=== PATIENT | female | born 1990 | race Caucasian/White ===

== ENCOUNTER 2016-08-11 19:19 | Observation (INO) ==
[2016-08-11 20:48] LABS: Bilirubin,Urine Negative (Negative); Blood,Urine Negative (Negative); Clarity,Urine Clear (Clear); Color,Urine Yellow (Yellow); Glucose,Urine (UA) 500 mg/dL (Normal); Ketones,Urine >=160 mg/dL (Negative); Leukocyte Esterase,Urine Trace (Negative); Nitrite,Urine Negative (Negative); Protein,Urine 30 mg/dL (Neg-Trace); Specific Gravity,Urine 1.029 (1.010-1.025); Urobilinogen,Urine Normal (Normal)
[2016-08-11 20:56] LABS: Squamous Epithelial Cell,Urine Few per lpf (None-Few)
[2016-08-11 20:57] LABS: Bacteria,Urine Few per hpf (None-Few); Mucus,Urine Few (Few)
[2016-08-11 21:40] LABS: Basophils % 0.2 %; Eosinophils % 0.1 %; Immature Granulocytes % 0.5 % (0-4); Lymphocytes # 0.7 K/mcL (0.6-4.6); Mean Corpuscular HGB Conc 34.9 g/dL (31.6-35.5); Mean Corpuscular Hemoglobin 31.1 pg (28.0-33.3); Mean Corpuscular Volume 89.2 fL (83.0-100.0); Mean Platelet Volume 9.4 fL (9.4-12.4); Monocytes # 0.4 K/mcL (0.0-1.3); Monocytes % 3.4 %; Neutrophils # 10.9 K/mcL (1.6-8.9); Platelet Count 345 K/mcL (140-400); Red Blood Count 4.82 M/mcL (3.82-4.97); Red Cell Distribution Width 11.2 % (11.5-14.5); Segmented Neutrophils % 89.8 %
[2016-08-11] MEDS ORDERED: Ondansetron ODT 4 MG TAB.RAPDIS SL ONE (21:43)
--- NOTE | 2016-08-11 21:47 | Emergency Department Note ---
Disposition Clinical Impression: DKA (diabetic ketoacidoses) Disposition: Admitted As Inpatient Condition: Good Referrals: Albertina Parker CHARTER COACH DRIVER [Primary Care Provider] - Forms: Work/School Release, ED Satisfaction Letter Time of Disposition: 22:27 Nausea/Vomiting/Diarrhea HPI - General Chief complaint: ED Abdominal Pain Stated complaint: abd pain Time Seen by Provider: 08/11/16 21:37 Source: patient Mode of arrival: ambulatory Limitations: no limitations Nursing Notes Reviewed: Yes Vital Signs Reviewed: Yes - History of Present Illness HPI Narrative: This is a 25 yo F who presents with n/v/d starting at 6 am today. Pt states sharp intermittent generalized abdominal pains associated. Pt denies any chest pain. Pt states they told her she was running a fever here but she had not had one that she was aware of early today. Pt states the pain that she gets takes her breath away. Pt denies any urinary symptoms. Pt denies chance of . Pt Subjective Complaint: nausea, vomiting, diarrhea Onset (ago): hour(s) - Related Data Allergies Allergy/AdvReac Type Severity Reaction Status Date / Time No Known Allergies Allergy Verified 08/11/16 20:28 All systems ED: reviewed and negative except as stated. Constitutional: Denies: fever, chills, weakness, weight change Eyes: Denies: eye pain, eye discharge, vision change ENT ED: Denies: ear pain, throat pain, dental pain, hearing loss, epistaxis, congestion, dysphagia Cardiovascular: Denies: chest pain, palpitations, dyspnea on exertion, edema, syncope Respiratory: Denies: cough, dyspnea, wheezes, hemoptysis, stridor Gastrointestinal: Reports: abdominal pain, nausea, vomiting, diarrhea. Denies: constipation, hematemesis, melena, hematochezia Genitourinary: Denies: dysuria, frequency, hematuria, discharge Musculoskeletal: Denies: back pain, neck pain, arthralgia, myalgia Integumentary: Denies: rash, abrasion, lesions Neurological: Denies: headache, weakness, numbness, paresthesias, confusion, abnormal gait, vertigo Psychiatric: Denies: anxiety, depression, suicidal thoughts, homicidal thoughts , auditory hallucinations, visual hallucinations Endocrine: Denies: fatigue Hematological/Lymphatic: Denies: easy bleeding, easy bruising Allergic/Immunologic: Denies: facial swelling, urticaria Past Medical History - Past Medical History Attestation: Yes The following information was validated with the patient. Source: patient Medical history: Reports: diabetes Psychiatric history: Reports: no psych history - Social History Smoking Status: Never smoker Alcohol use: Reports: none Drug use: Reports: none Physical Exam - General Limitations: no limitations General appearance: alert, in no apparent distress - Head Head exam: atraumatic, normocephalic, normal inspection - Eye Eye exam: Present: normal appearance, PERRL, EOMI - ENT ENT exam: normal exam, normal oropharynx, mucous membranes moist - Expanded ENT Exam External ear exam: Present: normal external inspection Mouth exam: Present: normal external inspection Teeth exam: Present: normal inspection Throat exam: Present: normal inspection - Neck Neck exam: Present: normal inspection, full ROM, trachea midline - Chest Chest inspection: Present: normal inspection, symmetric chest wall rise - Respiratory Respiratory exam: Present: normal lung sounds bilaterally - Cardiovascular Cardiovascular exam: Present: normal rhythm, tachycardia ( ), normal heart sounds - Abdominal Exam Abdominal exam: Present: soft, Non-Tender. Absent: tenderness, distention, guarding, rebound, rigidity - Extremities Exam Extremities exam: Present: normal inspection, full ROM. Absent: tenderness, pedal edema - Expanded Upper Extremity Exam Shoulder exam: Present: normal inspection, full ROM Arm exam: Present: normal inspection, full ROM Elbow exam: Present: normal inspection, full ROM Forearm/Wrist exam: Present: normal inspection, full ROM Hand exam: Present: normal inspection, full ROM Vascular exam: Normal: capillary refill, radial pulse - Expanded Lower Extremity Exam Hip/Pelvis exam: Present: normal inspection, full ROM Upper leg exam: Present: normal inspection, full ROM Knee exam: Present: normal inspection, full ROM Lower leg exam: Present: normal inspection, full ROM Ankle exam: Present: normal inspection, full ROM Foot/toe exam: Present: normal inspection, full ROM Neurovascular/Tendon exam: Absent: motor deficit, sensory deficit, tendon deficit - Back Exam Back exam: Present: normal inspection, full ROM. Absent: tenderness - Neurological Exam Neurological exam: Present: alert, oriented X3 - Expanded Neurological Exam Patient oriented to: Present: person, place, time Coma Scale Eye Opening: Spontaneous Coma Scale Motor Response: Obeys Commands Coma Scale Verbal Response: Oriented Coma Scale Total: 15 - Psychiatric Psychiatric exam: Present: normal affect, normal mood - Skin Skin exam: Present: warm, dry, intact, normal color Course - Consultations Consultation #1: I spoke with Dr. Borden he wants a CT Abd/Pelvis with IV contrast and then a call back. Time: 22:51 Vital Signs Temperature 99.2 F 08/11/16 20:23 Pulse Rate 140 08/11/16 20:23 Respiratory Rate 20 08/11/16 20:23 Blood Pressure 127/84 08/11/16 20:23 O2 Sat by Pulse Oximetry 97 08/11/16 20:23 Temperature 99.2 F 08/11/16 20:23 Pulse Rate 140 08/11/16 20:23 Respiratory Rate 20 08/11/16 20:23 Blood Pressure 127/84 08/11/16 20:23 O2 Sat by Pulse Oximetry 97 08/11/16 20:23 Oxygen Delivery Oxygen Delivery Room Air Nausea/Vomiting/Diarrhea - Medical Records Medical records reviewed: Yes I reviewed the patient's medical records. - Lab Data Lab results reviewed: Yes I reviewed the patient's lab results. Result diagrams: 08/11/16 21:32 08/11/16 21:32 Lab Results 08/11/16 08/11/16 08/11/16 Range/Units 20:30 20:39 21:32 WBC 12.1 H (4.3-11.1) K/mcL RBC 4.82 (3.82-4.97) M/mcL Hgb 15.0 (11.5-15.4) g/dL Hct 43.0 (35.3-44.9) % MCV 89.2 (83.0-100.0) fL MCH 31.1 (28.0-33.3) pg MCHC 34.9 (31.6-35.5) g/dL RDW 11.2 L (11.5-14.5) % Plt Count 345 (140-400) K/mcL MPV 9.4 (9.4-12.4) fL Immature Gran % 0.5 (0-4) % Seg Neutrophils % 89.8 % Lymphocytes % 6.0 % Monocytes % 3.4 % Eosinophils % 0.1 % Basophils % 0.2 % Neutrophils # 10.9 H (1.6-8.9) K/mcL Lymphocytes # 0.7 (0.6-4.6) K/mcL Monocytes # 0.4 (0.0-1.3) K/mcL Eosinophils # 0.0 (0.0-0.6) K/mcL Basophils # 0.0 (0.0-0.2) K/mcL Sodium (136-145) mEq/L Potassium (3.5-4.5) mEq/L Chloride (98-109) mEq/L Carbon Dioxide (19-29) mEq/L BUN (7-20) mg/dL Creatinine (0.57-1.11) mg/dL Est GFR ( Amer) (> 60) Est GFR (Non-Af Amer) (> 60) BUN/Creatinine Ratio (6-26) Glucose (70-99) mg/dL POC Glucose 249 H (58-89) Calculated Osmolality (280-300) Calcium (8.6-10.8) mg/dL Total Bilirubin (0.2-1.2) mg/dL Direct Bilirubin (0.0-0.5) mg/dL Indirect Bilirubin (0.0-1.2) mg/dL AST (5-34) Units/L ALT (0-55) Units/L Alkaline Phosphatase (38-126) Units/L Serum Total Protein (6.0-8.3) g/dL Albumin (3.5-5.0) g/dL Globulin (2.4-3.5) g/dL Albumin/Globulin Ratio (1.1-2.2) Lipase (8-78) Units/L Urine Color Yellow (Yellow) Urine Clarity Clear (Clear) Urine pH 6.0 (5.0-8.0) pH Units Ur Specific Rampart 1.029 H (1.010-1.025) Urine Protein 30 H (Neg-Trace) mg/dL Urine Glucose (UA) 500 H (Normal) mg/dL Urine Ketones >=160 H (Negative) mg/dL Urine Blood Negative (Negative) Urine Nitrite Negative (Negative) Urine Bilirubin Negative (Negative) Urine Urobilinogen Normal (Normal) mg/dL Ur Leukocyte Esterase Trace H (Negative) Urine Microscopic WBC 3-5 H (0-3) per hpf Ur Squamous Epith Cells Few (None-Few) per lpf Urine Bacteria Few (None-Few) per hpf Urine Mucus Few (Few) Ur Culture Indicated? YES A (NO) 08/11/16 Range/Units 21:32 WBC (4.3-11.1) K/mcL RBC (3.82-4.97) M/mcL Hgb (11.5-15.4) g/dL Hct (35.3-44.9) % MCV (83.0-100.0) fL MCH (28.0-33.3) pg MCHC (31.6-35.5) g/dL RDW (11.5-14.5) % Plt Count (140-400) K/mcL MPV (9.4-12.4) fL Immature Gran % (0-4) % Seg Neutrophils % % Lymphocytes % % Monocytes % % Eosinophils % % Basophils % % Neutrophils # (1.6-8.9) K/mcL Lymphocytes # (0.6-4.6) K/mcL Monocytes # (0.0-1.3) K/mcL Eosinophils # (0.0-0.6) K/mcL Basophils # (0.0-0.2) K/mcL Sodium 134 L (136-145) mEq/L Potassium 3.3 L (3.5-4.5) mEq/L Chloride 103 (98-109) mEq/L Carbon Dioxide 17 L (19-29) mEq/L BUN 10 (7-20) mg/dL Creatinine 0.72 (0.57-1.11) mg/dL Est GFR ( Amer) > 60 (> 60) Est GFR (Non-Af Amer) > 60 (> 60) BUN/Creatinine Ratio 14 (6-26) Glucose 287 H (70-99) mg/dL POC Glucose (58-89) Calculated Osmolality 288 (280-300) Calcium 8.7 (8.6-10.8) mg/dL Total Bilirubin 0.6 (0.2-1.2) mg/dL Direct Bilirubin 0.3 (0.0-0.5) mg/dL Indirect Bilirubin 0.3 (0.0-1.2) mg/dL AST 22 (5-34) Units/L ALT 20 (0-55) Units/L Alkaline Phosphatase 60 (38-126) Units/L Serum Total Protein 7.3 (6.0-8.3) g/dL Albumin 3.3 L (3.5-5.0) g/dL Globulin 4.0 H (2.4-3.5) g/dL Albumin/Globulin Ratio 0.8 L (1.1-2.2) Lipase 11 (8-78) Units/L Urine Color (Yellow) Urine Clarity (Clear) Urine pH (5.0-8.0) pH Units Ur Specific Rampart (1.010-1.025) Urine Protein (Neg-Trace) mg/dL Urine Glucose (UA) (Normal) mg/dL Urine Ketones (Negative) mg/dL Urine Blood (Negative) Urine Nitrite (Negative) Urine Bilirubin (Negative) Urine Urobilinogen (Normal) mg/dL Ur Leukocyte Esterase (Negative) Urine Microscopic WBC (0-3) per hpf Ur Squamous Epith Cells (None-Few) per lpf Urine Bacteria (None-Few) per hpf Urine Mucus (Few) Ur Culture Indicated? (NO)
[2016-08-11 21:54] LABS: BUN/Creatinine Ratio 14 (6-26); Blood Urea Nitrogen 10 mg/dL (7-20); Calcium 8.7 mg/dL (8.6-10.8); Carbon Dioxide 17 mEq/L (19-29); Chloride 103 mEq/L (98-109); Glucose 287 mg/dL (70-99); Osmolality,Calculated 288 (280-300); Potassium 3.3 mEq/L (3.5-4.5); Sodium 134 mEq/L (136-145); eGFR For African Americans > 60 (> 60); eGFR For Non-African Americans > 60 (> 60)
[2016-08-11] MEDS ORDERED: 0.9 % Sodium Chloride 1,000 ML IV SCH ×2 (22:00→22:30)
[2016-08-11 22:08] LABS: Alanine Aminotransferase 20 Units/L (0-55); Albumin 3.3 g/dL (3.5-5.0); Albumin/Globulin Ratio 0.8 (1.1-2.2); Alkaline Phosphatase 60 Units/L (38-126); Aspartate Amino Transferase 22 Units/L (5-34); Bilirubin,Direct 0.3 mg/dL (0.0-0.5); Bilirubin,Indirect 0.3 mg/dL (0.0-1.2); Bilirubin,Total 0.6 mg/dL (0.2-1.2); Lipase 11 Units/L (8-78); Total Protein 7.3 g/dL (6.0-8.3)
[2016-08-11 22:58] LABS: VBG HCO3 21.8 mEq/L (21-27); VBG PH 7.39 pH Units (7.32-7.42)
[2016-08-12] MEDS ORDERED: *HR* Dextrose 50 % in Water (Syg) 50 ML SYRINGE IVP PRN ×2 (00:07→00:46)
[2016-08-12] MEDS ORDERED: SODIUM CHLORIDE 0.9% IVC SCH (00:15)
[2016-08-12] MEDS ORDERED: INSULIN HUMAN REGULAR IVC SCH (00:15)
[2016-08-12] MEDS ORDERED: Ondansetron 4 MG/2 ML VIAL IVP PRN (00:44)
[2016-08-12] MEDS ORDERED: Naloxone 0.4 MG/ML INJ IVP PRN (00:44)
[2016-08-12] MEDS ORDERED: Acetaminophen 325 MG TABLET PO PRN (00:44)
[2016-08-12] MEDS ORDERED: 0.9 % Sodium Chloride 1,000 ML IVC SCH (00:45)
[2016-08-12] MEDS ORDERED: Dextrose Gel 15 GM PO PRN ×2 (00:46)
[2016-08-12] MEDS ORDERED: D5% in Water 1,000 ML IV PRN (00:46)
--- NOTE | 2016-08-12 02:26 | Internal Med History&Physical ---
Date of Encounter: 08/12/16 Time of Encounter: 02:24 Assessment and Plan (1) Viral gastroenteritis Current visit: Yes Status: Acute Patient is a history of sick contact 2-year-old son who is suffering from the same diarrheal episode. Patient appears dry on physical exam. Placed under observation. Full liquid diet and advance as tolerated. Intravenous fluids. Supportive care. No indication for antibiotics. Likely discharge later today depending on her clinical progress. (2) Diabetes mellitus Current visit: Yes Status: Chronic Patient is his metformin and glyburide at home. Hold by mouth medications. Sliding scale insulin. Patient has been instructed to hold metformin until diarrheal illness resolves. Qualifiers: Diabetes mellitus type: type 2 Diabetes mellitus complication status: without complication Diabetes mellitus fdc insulin use: without vermin exterminator use Qualified Code(s): E11.9 - Type 2 diabetes mellitus without complications (3) Obesity Current visit: No Status: Chronic Qualifiers: Obesity type: due to excess calories Obesity severity: non-morbid Qualified Code(s): E66.09 - Other obesity due to excess calories Internal Medicine - H&P: HPI Chief complaint: Abdominal pain Admitted From: Emergency Dept Plans for Post Hospital Care: Home History of present illness: Ms. Fuentes is a 25 year old female who presented to the emergency room due to abdominal pain. The patient states that the pain started yesterday morning at 6 AM. The pain gradually got worse throughout the day. It was a diffuse abdominal pain without any radiation. No aggravating or relieving factors. The pain was associated with diarrhea. She states that it is loose bowel movements and she had 6 episodes yesterday. The patient has been on metformin for over a year. She was initially on 500 mg by mouth twice a day. However, over the past 2 months her dose was increased to 1000 mg twice a day and she has been having bowel movements 4 times a day. This diarrheal episode is more than her usual bowel movements. She reports nausea and having had an episode of emesis. Denies any blood or pus in the stool. Denies any shortness of breath, chest pain, palpitations or feeling lightheaded. Denies any fever or chills. She does report sick [id number]-year-old son is sick with diarrhea and viral gastroenteritis. She denies eating outside. Past Med Surg Social Fam HX - Past Medical History Attestation: Yes The following information was validated with the patient. Source: patient Medical history: diabetes (Type 2) Psychiatric history: no psych history - Past Surgical History Surgical History: - Social History Smoking Status: Never smoker Alcohol use: none Drug use: none Current living situation: Home, With Family Activity Level: Independent ambulation - Family History Mother Hx Family Endocrine Disorder: Yes (DM) Father Hx Family Endocrine Disorder: Yes (DM) Internal Medicine - H&P: Meds Allergies No Known Allergies Allergy (Verified 08/11/16 20:28) All Systems PM: A 10-system review of systems was performed and is negative for pertinent findings except as documented above in the HPI. Review of systems: 10 systems have been reviewed and are negative except as mentioned in the history of present illness - Constitutional Vitals: Temp Pulse Resp BP Pulse Ox 99.2 F 108 16 130/78 98 08/11/16 20:23 08/12/16 00:47 08/12/16 00:47 08/12/16 00:47 08/12/16 00:47 Exam: Gen.: Lying in bed. No acute distress. Eyes: Pupils equal, round and reactive to light. Extraocular muscles intact. ENT: Dry mucous membranes. No oropharyngeal erythema or discharge. Chest: Clear to auscultation bilaterally. No adventitious sounds present. CVS: First and second heart sounds present. No murmurs, rubs or gallops. Tachycardia present Abdomen: Soft, nontender, obese. Bowel sounds present. No hepatosplenomegaly. Skin: No decubitus ulcers appreciated. DOMESTIC TECHNICIAN: No focal neuro deficits present. Psychiatric: Alert, awake and oriented to time, place and person. Lymphatic system: No lymphadenopathy appreciated Internal Med - H&P Results - Labs CBC & Chem 7: 08/11/16 21:32 08/11/16 21:32
[2016-08-12] MEDS: 0.9 % Sodium Chloride 1,000 ML IVC SCH ×2 (03:15→04:20)
[2016-08-12] MEDS: Bismuth Subsalicylate 120 ML ORAL SUSPENSION PO PRN ×2 (03:21→10:03)
[2016-08-12 06:50] LABS: BUN/Creatinine Ratio 13 (6-26); Blood Urea Nitrogen 7 mg/dL (7-20); Carbon Dioxide 15 mEq/L (19-29); Chloride 113 mEq/L (98-109); Glucose 151 mg/dL (70-99); Osmolality,Calculated 287 (280-300); Sodium 138 mEq/L (136-145); eGFR For African Americans > 60 (> 60); eGFR For Non-African Americans > 60 (> 60)
[2016-08-12 06:54] LABS: Calcium 7.2 mg/dL (8.6-10.8)
[2016-08-12] MEDS: Insulin LISPRO 300 UNITS/3 ML VIAL SQ SCH ×2 (08:54→12:01)
[2016-08-12 14:48] LABS: Magnesium 1.3 mg/dL (1.6-2.6); Potassium 3.1 mEq/L (3.5-4.5)
[2016-08-12 15:17] VITALS: BP 99/70
[2016-08-12] MEDS ORDERED: Magnesium Oxide 400 MG TABLET PO STA (16:14)
--- NOTE | 2016-08-12 17:49 | Discharge Summary ---
Date of Encounter: 08/13/16 Time of Encounter: 05:45 - Discharge Diagnosis (1) Hypokalemia Priority: Secondary Status: Acute (2) Hypomagnesemia Priority: Secondary Status: Acute (3) Viral gastroenteritis Priority: Primary Status: Acute (4) Diabetes mellitus Priority: Secondary Status: Chronic Qualifiers: Diabetes mellitus type: type 2 Diabetes mellitus complication status: without complication Diabetes mellitus alf insulin use: without long winder tender use Qualified Code(s): E11.9 - Type 2 diabetes mellitus without complications (5) Obesity Priority: Secondary Status: Chronic Qualifiers: Obesity type: due to excess calories Obesity severity: non-morbid Qualified Code(s): E66.09 - Other obesity due to excess calories - Discharge Medications Prescriptions: Magnesium Oxide [Mag-Ox] 400 mg PO DAILY #30 tablet Potassium Chloride 20 meq PO DAILY #5 tab.er.prt Home Medications: GlyBURIDE 5 mg PO BIDWM 08/12/16 [History] Magnesium Oxide [Mag-Ox] 400 mg PO DAILY #30 tablet 08/12/16 [Rx] Metformin [Glucophage] 1,000 mg PO BIDWM 08/12/16 [History] Norgestimate-Ethinyl Estradiol [Sprintec 28 Day Tablet] 1 each PO DAILY [History] Potassium Chloride 20 meq PO DAILY #5 tab.er.prt 08/12/16 [Rx] Allergies/Adverse Reactions: Allergies No Known Allergies Allergy (Verified 08/11/16 20:28) Date of admission: 08/12/16 00:29 Primary care physician: Albertina Parker CNP Discharging clinician: Damon Ochoa - Patient Status Disposition: Home, Self-Care Condition: Good - Discharge Instructions Instructions: Potassium Chloride (By mouth), Magnesium (By mouth), Potassium Content of Foods List (DC), Hypokalemia (DC), Diabetes Mellitus Type 2 in Adults (DC), Gastroenteritis (DC) Follow Up With: Albertina Parker CNP [Primary Care Provider] - (We have requested a follow up appointment with Albertina Parker. The office will call you at home with an appointment date and time.) - Diet and Activity Activity: resume usual activities as tolerated Diet: advance to your usual diet Hospital course: Ms. Fuentes is a 25 year old female patient came to emergency room with complaint of abdominal pain. The patient states that the pain started yesterday morning at 6 AM. The pain gradually got worse throughout the day. It was a diffuse abdominal pain without any radiation. No aggravating or relieving factors. The pain was associated with diarrhea. She states that it is loose bowel movements and she had 6 episodes yesterday. The patient has been on metformin for over a year. She was initially on 500 mg by mouth twice a day. However, over the past 2 months her dose was increased to 1000 mg twice a day and she has been having bowel movements 4 times a day. This diarrheal episode is more than her usual bowel movements. She reports nausea and having had an episode of emesis. Denies any blood or pus in the stool. Denies any shortness of breath, chest pain, palpitations or feeling lightheaded. Denies any fever or chills. She does report sick [id number]-year-old son is sick with diarrhea and viral gastroenteritis. She denies eating outside. With [facility] patient the hospital. Patient had hypokalemia hypomagnesemia clinically she was so dry. We started patient on IV fluids and electrolytes replacement. His start patient on Protonix. Patient condition continued to improve, diet was advanced. Patient tolerated all her meals without any problems. Had long discussion was patient about her electrolyte abnormality. Received 60 oral potassium in addition to she ate to orange and 2 when banna. Potassium still low. Discussed risk of dyspnea. Patient stated she had to go home, potassium supplement prescription was given. Counseling on her potassium supplement and oral hydration for next 24-hour. The patient discharged home in stable condition. Patient was afebrile. Most likely viral gastroenteritis - Time Spent with Patient Total time spent providing and/or coordinating discharge services: Less than 30 minutes - Constitutional Vitals: Temp Pulse Resp BP Pulse Ox 98.3 F 100 16 99/70 98 08/12/16 15:16 08/12/16 15:16 08/12/16 15:16 08/12/16 15:16 08/12/16 15:16
[2016-08-12] MEDS ORDERED: Insulin LISPRO 300 UNITS/3 ML VIAL SQ SCH (21:00)
== END 2016-08-12 18:45 | disposition home or self-care (01) ==
LOC: EMEROO 19:19 → INTOOBSV 08-12 00:29 → ICNU 08-12 00:29 → 2ANU 08-12 00:48 → 3BNU 08-12 00:49
PROVIDERS: ADMIT Internal Medicine Sleep Medicine; ATTEND Internal Medicine

== ENCOUNTER 2020-09-29 01:39 | Observation (INO) ==
[2020-09-29] MEDS ORDERED: 0.9 % Sodium Chloride 1,000 ML IVC ONE (02:47)
[2020-09-29 02:51] LABS: Basophils % 0.2 %; Eosinophils % 0.1 %; Hemoglobin 14.7 g/dL (11.5-15.4); Immature Granulocytes % 0.4 % (0-4); Lymphocytes # 2.7 K/mcL (0.6-4.6); Lymphocytes % 13.9 %; Mean Corpuscular Volume 88.6 fL (83.0-100.0); Mean Platelet Volume 9.3 fL (9.4-12.4); Monocytes # 0.8 K/mcL (0.0-1.3); Monocytes % 4.3 %; Neutrophils # 15.5 K/mcL (1.6-8.9); Platelet Count 392 K/mcL (140-400); Red Blood Count 4.74 M/mcL (3.82-4.97); Red Cell Distribution Width 11.2 % (11.5-14.5); Segmented Neutrophils % 81.1 %; White Blood Count 19.1 K/mcL (4.3-11.1)
[2020-09-29 02:52] LABS: Bilirubin,Urine Negative (Negative); Blood,Urine Negative (Negative); Clarity,Urine Clear (Clear); Color,Urine Colorless (Yellow); Glucose,Urine (UA) >=1000 mg/dL (Normal); Ketones,Urine 20 mg/dL (Negative); Leukocyte Esterase,Urine Negative (Negative); Mucus,Urine Few per lpf (None-Few); Nitrite,Urine Negative (Negative); Protein,Urine Negative (Neg-Trace); RBC,Urine 0-3 per hpf (0-3); Specific Gravity,Urine 1.006 (1.010-1.025); Squamous Epithelial Cell,Urine Few per hpf (None-Few); Urobilinogen,Urine Normal (Normal); WBC,Urine 0-3 per hpf (0-3)
[2020-09-29 03:13] LABS: BUN/Creatinine Ratio 26 (6-26); Blood Urea Nitrogen 13 mg/dL (6-20); Calcium 9.5 mg/dL (8.6-10.3); Carbon Dioxide 20 mEq/L (23-29); Chloride 100 mEq/L (98-107); Glucose 280 mg/dL (70-105); Osmolality,Calculated 288 (280-300); Potassium 3.5 mEq/L (3.5-5.1); Sodium 134 mEq/L (136-145); eGFR For African Americans > 60 (> 60); eGFR For Non-African Americans > 60 (> 60)
[2020-09-29 03:15] LABS: Troponin I < 0.03 ng/mL (< 0.04)
[2020-09-29 03:28] LABS: Thyroid Stimulating Hormone 2.628 mcIU/mL (0.340-5.600)
[2020-09-29 05:11] LABS: VBG HCO3 22 mEq/L (21-27); VBG PCO2 35 mmHg (41-51); VBG PO2 76 mmHg (25-50)
[2020-09-29] MEDS ORDERED: hydrOXYzine pamoate 25 MG CAPSULE PO ONE (06:34)
[2020-09-29] MEDS ORDERED: *HR* LORazepam 2 MG/ML VIAL IVP ONE (08:13)
[2020-09-29] MEDS ORDERED: Naloxone 0.4 MG/ML INJ IVP PRN (08:48)
[2020-09-29] MEDS ORDERED: Perflutren Lipid Microsphere 1.3 ML in 0.9 % Sodium Chloride 8.7 ML IVP PRN (08:49)
[2020-09-29] MEDS ORDERED: *HR* Dextrose 50 % in Water (Vial) 50 ML VIAL IVP PRN (08:50)
[2020-09-29] MEDS ORDERED: Dextrose Gel 15 GM/37.5 ML TUBE PO PRN ×2 (08:50)
[2020-09-29] MEDS ORDERED: D5% in Water 1,000 ML IVC PRN (08:50)
[2020-09-29] MEDS: Insulin LISPRO 300 UNITS/3 ML VIAL SUBQ SCH ×2 (14:03→15:32)
[2020-09-29 14:19] LABS: Amphetamine Screen,Urine Negative ng/mL (Cutoff=1000); Barbiturate Screen,Urine Negative ng/mL (Cutoff=200); Benzodiazepines Screen,Urine Negative ng/mL (Cutoff=200); Cannabinoid Screen,Urine Negative ng/mL (Cutoff = 50); Cocaine Screen,Urine Negative ng/mL (Cutoff= 300); Opiate Screen,Urine Negative ng/mL (Cutoff=300); Phencyclidine Screen,Urine Negative ng/mL (Cutoff=25)
[2020-09-29] MEDS ORDERED: hydrOXYzine pamoate 25 MG CAPSULE PO PRN (14:29)
[2020-09-29] MEDS ORDERED: Sodium Bicarbonate 75 MEQ in 0.45 % Sodium Chloride 1,000 ML IVC SCH (14:45)
[2020-09-29 15:37] LABS: BUN/Creatinine Ratio 21 (6-26); Blood Urea Nitrogen 9 mg/dL (6-20); Carbon Dioxide 22 mEq/L (23-29); Chloride 103 mEq/L (98-107); Glucose 197 mg/dL (70-105); Osmolality,Calculated 284 (280-300); Potassium 3.8 mEq/L (3.5-5.1); Sodium 135 mEq/L (136-145); eGFR For African Americans > 60 (> 60); eGFR For Non-African Americans > 60 (> 60)
[2020-09-29] MEDS ORDERED: Insulin LISPRO 300 UNITS/3 ML VIAL SUBQ SCH (21:00)
[2020-09-30 06:03] LABS: BUN/Creatinine Ratio 30 (6-26); Blood Urea Nitrogen 14 mg/dL (6-20); Calcium 8.5 mg/dL (8.6-10.3); Carbon Dioxide 23 mEq/L (23-29); Chloride 102 mEq/L (98-107); Glucose 228 mg/dL (70-105); Magnesium 1.9 mg/dL (1.6-2.6); Osmolality,Calculated 286 (280-300); Phosphorous 2.7 mg/dL (2.7-4.5); Potassium 3.3 mEq/L (3.5-5.1); Sodium 134 mEq/L (136-145); eGFR For African Americans > 60 (> 60); eGFR For Non-African Americans > 60 (> 60)
[2020-09-30 06:08] LABS: Basophils # 0.1 K/mcL (0.0-0.2); Basophils % 0.4 %; Eosinophils # 0.1 K/mcL (0.0-0.6); Eosinophils % 0.8 %; Hematocrit 38.7 % (35.3-44.9); Hemoglobin 13.2 g/dL (11.5-15.4); Immature Granulocytes % 0.3 % (0-4); Lymphocytes # 4.6 K/mcL (0.6-4.6); Lymphocytes % 38.9 %; Mean Corpuscular HGB Conc 34.1 g/dL (31.6-35.5); Mean Corpuscular Hemoglobin 31.1 pg (28.0-33.3); Mean Corpuscular Volume 91.1 fL (83.0-100.0); Mean Platelet Volume 9.7 fL (9.4-12.4); Monocytes # 0.9 K/mcL (0.0-1.3); Monocytes % 7.9 %; Neutrophils # 6.1 K/mcL (1.6-8.9); Platelet Count 359 K/mcL (140-400); Red Blood Count 4.25 M/mcL (3.82-4.97); Red Cell Distribution Width 11.4 % (11.5-14.5); Segmented Neutrophils % 51.7 %; White Blood Count 11.8 K/mcL (4.3-11.1)
[2020-09-30] MEDS ORDERED: Potassium Effervescent 25 MEQ TABLET.EFF PO ONE (07:20)
[2020-09-30] MEDS: Insulin LISPRO 300 UNITS/3 ML VIAL SUBQ SCH (08:02)
[2020-09-30 10:27] VITALS: BP 104/71
== END 2020-09-30 11:35 | disposition home or self-care (01) ==
LOC: EMEROOARM 01:39 → 3BNU 01:39
PROVIDERS: ADMIT Internal Medicine; ATTEND Internal Medicine

== ENCOUNTER 2021-08-06 04:48 | Inpatient (IN) ==
[2021-08-06] MEDS ORDERED: Famotidine 20 MG/2 ML VIAL IVP ONE (05:40)
[2021-08-06] MEDS ORDERED: Metoclopramide 10 MG/2 ML VIAL IVP ONE (05:40)
[2021-08-06] MEDS ORDERED: CeFAZolin Syr 3,000MG/30 ML 3,000 MG/30 ML SYRINGE IVPB ONE (05:40)
[2021-08-06 06:24] LABS: Basophils % 0.2 %; Eosinophils # 0.2 K/mcL (0.0-0.6); Eosinophils % 1.2 %; Hematocrit 31.3 % (35.3-44.9); Hemoglobin 10.9 g/dL (11.5-15.4); Immature Granulocytes % 0.7 % (0-4); Lymphocytes # 3.1 K/mcL (0.6-4.6); Lymphocytes % 25.4 %; Mean Corpuscular HGB Conc 34.8 g/dL (31.6-35.5); Mean Corpuscular Hemoglobin 33.1 pg (28.0-33.3); Mean Corpuscular Volume 95.1 fL (83.0-100.0); Mean Platelet Volume 9.2 fL (9.4-12.4); Monocytes # 0.9 K/mcL (0.0-1.3); Monocytes % 7.1 %; Platelet Count 349 K/mcL (140-400); Red Blood Count 3.29 M/mcL (3.82-4.97); Red Cell Distribution Width 13.3 % (11.5-14.5); Segmented Neutrophils % 65.4 %; White Blood Count 12.2 K/mcL (4.3-11.1)
[2021-08-06] MEDS ORDERED: Ringers Solution, Lactated 1,000 ML ONE (07:13)
[2021-08-06 07:18] LABS: Influenza A PCR Negative (Negative); Influenza B PCR Negative (Negative); Resp. Syncytial Virus PCR Negative (Negative); SARS-CoV-2 by PCR (In House) Negative (Negative)
[2021-08-06] MEDS ORDERED: Ondansetron 4 MG/2 ML VIAL IVP PRN ×2 (07:24→11:11)
[2021-08-06] MEDS ORDERED: *HR* FentaNYL (PF) 100 MCG/2 ML VIAL IVP PRN (07:24)
[2021-08-06] MEDS ORDERED: *HR* Morphine Sulfate/PF 10 MG/10 ML AMPUL ONE (07:28)
[2021-08-06] MEDS ORDERED: Ondansetron 4 MG/2 ML VIAL ONE ×2 (07:28→08:56)
[2021-08-06] MEDS ORDERED: *HR* FentaNYL (PF) 100 MCG/2 ML VIAL ONE (07:28)
[2021-08-06] MEDS ORDERED: Acetaminophen IV 1,000 MG/100 ML BAG IVPB ONE (07:31)
[2021-08-06] MEDS ORDERED: *HR* Midazolam HCl 2 MG/2 ML VIAL ONE (07:37)
[2021-08-06 08:18] LABS: Amphetamine Screen,Urine Negative ng/mL (Cutoff=1000); Barbiturate Screen,Urine Negative ng/mL (Cutoff=200); Benzodiazepines Screen,Urine Negative ng/mL (Cutoff=200); Cannabinoid Screen,Urine Negative ng/mL (Cutoff = 50); Cocaine Screen,Urine Negative ng/mL (Cutoff= 300); Opiate Screen,Urine Negative ng/mL (Cutoff=300); Phencyclidine Screen,Urine Negative ng/mL (Cutoff=25)
[2021-08-06] MEDS ORDERED: Ketorolac 30 MG/ML VIAL ONE (08:58)
[2021-08-06] MEDS ORDERED: Oxytocin 20 units/ LR 1000 mL 20 UNIT/1,000 ML BAG IVC ONE (09:39)
[2021-08-06] MEDS ORDERED: *HR* Promethazine 25 MG/ML VIAL IM ONE (10:08)
[2021-08-06] MEDS ORDERED: *HR* OxyCODONE Immed Rel 5 MG TABLET PO PRN (11:11)
[2021-08-06] MEDS ORDERED: Insulin DETEMIR 100 UNIT/ML X5UNITS SUBQ SCH (11:11)
[2021-08-06] MEDS ORDERED: Oxytocin 20 units/ LR 1000 mL 20 UNIT/1,000 ML BAG IVC SCH ×2 (11:11)
[2021-08-06] MEDS ORDERED: Prenatal Vit/FA 1 EACH TABLET PO SCH (11:11)
[2021-08-06] MEDS ORDERED: Rho Immune Globulin 1,500 UNIT SYRINGE IM ONE (11:11)
[2021-08-06] MEDS ORDERED: Metoclopramide 10 MG/2 ML VIAL IVP PRN (11:11)
[2021-08-06] MEDS ORDERED: Simethicone 80 MG TAB.CHEW PO PRN (11:11)
[2021-08-06] MEDS ORDERED: Ringers Solution, Lactated 1,000 ML IVC SCH (18:45)
[2021-08-06] MEDS: cephALEXin 500 MG CAPSULE PO SCH (20:47)
[2021-08-06] MEDS: metroNIDAZOLE 500 MG TABLET PO SCH (20:48)
[2021-08-06] MEDS: Ibuprofen 600 MG TABLET PO SCH (20:48)
[2021-08-06] MEDS: Acetaminophen 325 MG TABLET PO SCH (20:49)
[2021-08-06] MEDS: *HR* Enoxaparin 60 MG/0.6 ML SYRINGE SQ SCH (20:50)
[2021-08-06] MEDS: *HR* Metformin 500 MG TABLET PO SCH (20:50)
[2021-08-07 00:56] VITALS: O2SAT 98
[2021-08-07] MEDS: Acetaminophen 325 MG TABLET PO SCH (05:28)
[2021-08-07] MEDS: Ibuprofen 600 MG TABLET PO SCH ×2 (05:29→10:03)
[2021-08-07 07:34] VITALS: PULSE 95; TEMP 98.1
[2021-08-07] MEDS: cephALEXin 500 MG CAPSULE PO SCH (08:13)
[2021-08-07] MEDS: metroNIDAZOLE 500 MG TABLET PO SCH (08:13)
[2021-08-07] MEDS: *HR* Metformin 500 MG TABLET PO SCH (08:18)
[2021-08-07 09:06] LABS: Basophils % 0.3 %; Eosinophils # 0.1 K/mcL (0.0-0.6); Eosinophils % 0.9 %; Hematocrit 32.5 % (35.3-44.9); Hemoglobin 10.6 g/dL (11.5-15.4); Immature Granulocytes % 0.5 % (0-4); Lymphocytes # 2.1 K/mcL (0.6-4.6); Lymphocytes % 17.7 %; Mean Corpuscular HGB Conc 32.6 g/dL (31.6-35.5); Mean Corpuscular Hemoglobin 31.7 pg (28.0-33.3); Mean Corpuscular Volume 97.3 fL (83.0-100.0); Mean Platelet Volume 9.1 fL (9.4-12.4); Monocytes % 8.2 %; Neutrophils # 8.5 K/mcL (1.6-8.9); Platelet Count 288 K/mcL (140-400); Red Blood Count 3.34 M/mcL (3.82-4.97); Red Cell Distribution Width 13.5 % (11.5-14.5); Segmented Neutrophils % 72.4 %; White Blood Count 11.8 K/mcL (4.3-11.1)
[2021-08-07] MEDS: *HR* Enoxaparin 60 MG/0.6 ML SYRINGE SQ SCH (10:03)
[2021-08-07 10:12] VITALS: BP 107/68
== END 2021-08-07 15:11 | disposition home or self-care (01) | DRG 788 ==
LOC: 1NENULAB 04:48 → 1NENUOBS 11:10 → UNDODISIN 08-07 13:09
PROVIDERS: ADMIT Obstetrics & Gynecology; ATTEND Obstetrics & Gynecology